=== PATIENT | female | born 1950 | race Caucasian/White ===

== ENCOUNTER 2018-09-04 14:03 | Emergency (ER) | payer OTHER ==
[2018-09-04] MEDS: DEXAMETHASONE 10 MG/ML 1 ML INJ IM (17:08)
[2018-09-04] MEDS: IPRATROPIUM (NEB) 0.5 MG/2.5 ML AMP NEB (17:14)
[2018-09-04] MEDS: ALBUTEROL 0.083% (NEB) 2.5 MG/3 ML AMP NEB (17:14)
== END 2018-09-04 18:30 | disposition home or self-care (01) ==
LOC: FTE 14:03
DX: J45.901 Unspecified asthma with (acute) exacerbation (principal)
CPT/HCPCS: 94664; 96372; 99284-25